=== PATIENT | female | born 1995 | race Caucasian/White ===

== ENCOUNTER 2018-02-25 09:12 | Emergency (ER) | payer MEDICAID ==
--- NOTE | 2018-02-25 09:35 | EDPHY ---
General Time Seen by Provider: 02/25/18 09:30 Narrative: CLINICAL IMPRESSION: Pelvic pain ASSESSMENT/PLAN: Patient is a 22 year old female with a significant medical history of PTSD and OCD who presents who presents with pelvic pain and cramping. Patient is afebrile and nontoxic appearing, she is in no acute distress. Her abdomen is soft, I am unable to elicit any tenderness on palpation, no peritoneal signs on initial or re-examination. Vital signs remained stable while in the ED, no signs of sepsis or serious bacterial illness. CBC with no leukocytosis or shift , basic metabolic panel grossly unremarkable. negative, rules out ectopic. Pelvic exam with moderate discharge, cervix is pink mildly friable however there is no cervical motion tenderness or adnexal fullness or tenderness. Low suspicion for PID with lack of cervical motion tenderness, GC and wet prep are pending. US with no cystic or solid adnexal masses, normal blood flow. No evidence of torsion, no ovarian cyst, TOA and no evidence of surgical abdomen. She had no urinary symptoms to suggest urinary tract infection or pyelonephritis. This patient presents with pelvic pain and cramping of unclear etiology. Patient has had issues with severe cramps and reported abnormal uterine bleeding in the past, discussed close follow-up with her OBGYN to further evaluate other etiologies including but not limited to endometriosis. I do not suspect other etiologies to include appendicitis, ischemic bowel, bowel perforation or any other life threatening disease. I have discussed with the patient the level of uncertainty with undifferentiated abdominal pain and clearly explained the need to repeat examination within 12-24 hours. The patient is well established with her primary care Dr. Wiggins and will call to schedule an appointment for follow-up in repeat examination. Return precautions discussed-patient will return for worsening or localizing pain, fever, significant vaginal bleeding or for any other concerning symptom. Patient verbalizes understanding and she is in agreement with this plan. DIFFERENTIAL DX: Abdominal pain in a female including but not limited to ovarian cyst, pelvic inflammatory disease, ovarian torsion, urinary tract infection, and appendicitis. CHIEF COMPLAINT: Pelvic pain, cramping HPI: Patient is a 22-year-old female with a significant history of PTSD and OCD who presents to the emergency department with cramping and pelvic pain. Patient reports she had a heavier than normal menses last week, her period ended and she continued to have significant lower abdominal cramping. Patient reports it continued through the weekend and then worsened this morning. She reports that it is not localized to 1 side or the other, it tends to move positions. She took some Aleve this morning at 7:30 a.m. With mild relief of her discomfort. Patient does have a history of heavy menses and severe abdominal cramping, followed closely by her PCP Dr. Wiggins. Patient planned poor pelvic ultrasound however symptoms improved until several days prior. Patient is sexually active with more than 1 partner, she is not concerned about sexually transmitted infections. No history of ovarian cyst. Patient denies any fevers, chills, nausea, vomiting, chest pain or shortness of breath. She denies any current vaginal bleeding or vaginal discharge. PMH: PTSD, OCD Pertinent Past Surgical History: Denies Family History: Denies Social History: Occasional EtOH, denies smoking REVIEW OF SYSTEMS: All other systems negative Constitutional: No fever, no chills, appetite change. Eyes: No discharge, vision change ENT: No sore throat, congestion, ear pain. Cardiovascular: No chest pain, no palpitations. Respiratory: No cough, no shortness of breath. Gastrointestinal: Lower abdominal cramping. No vomiting, diarrhea. Genitourinary: Pelvic pain. No hematuria, dysuria, flank pain. Musculoskeletal: No back pain, joint swelling, joint pain, myalgias. Skin: No rashes, color change. Neurological: No headache, dizziness, weakness. PHYSICAL EXAM: General Appearance: Patient is well-developed, well-appearing and in no acute distress HENT: Normocephalic, atraumatic. Bilateral external ears are normal. Bilateral tympanic membranes are normal with pearly saeed reflex. Nares are clear, mucosa is pink. Oropharynx is clear, uvula is midline. There is no tonsillar enlargement or exudate. The dentition is normal. Eyes: PERRLA, no acute vision change, nystagmus, swelling, discharge, pain or photosensitivity. Conjunctiva pink, no pallor or injection Neck: Supple, nontender, no lymphadenopathy, no midline pain, FROM, no meningismus. Respiratory: There are no retractions, lungs are clear to auscultation. Cardiac: Regular rate and rhythm, no murmurs or gallops. Gastrointestinal: Abdomen is soft, bowel sounds normal, no masses/hernia, no rigidity, guarding or focal peritoneal findings. I am unable to elicit any tenderness to palpation. exam chaperoned by Lucina MUÑOZ, moderate amount of discharge, cervix mildly friable, no cervical motion tenderness, no adnexal fullness, no adnexal tenderness. Neurological: Alert and oriented x 3, CN 2-12 grossly intact, normal gait no ataxia, DTR's intact, normal sensation and strength Skin: Warm, dry, no rashes, no nodules on palpation. Musculoskeletal: Extremities are symmetrical, full range of motion, no tenderness, deformity, swelling, or erythema. Psychiatric: Patient is oriented X 3, there is no agitation. MEDICAL DECISION MAKING: Patient was seen independently. Secondary supervising physician at time of evaluation was Dr. Cesar, she did not evaluate this patient however results and plan of care were discussed with her. Diagnosis: Pelvic pain. New, requires workup Summary: See Assessment and Plan for summary of ED visit Clinical lab tests: ordered / reviewed. Independent visualization of images, tracing, or specimens: Yes. Decision to obtain medical records or history from someone other than the patient: No Review / Summarize previous medical records: None available Discussed patient with another provider: Yes, Dr. Cesar Patient Progress: Stable, discharged. - Objective Vital Signs: Initial Vital Signs Temperature (C) 37 C 02/25/18 09:16 Heart Rate 73 02/25/18 09:16 Respiratory Rate 18 02/25/18 09:16 Blood Pressure 108/82 H 02/25/18 09:16 O2 Sat (%) 99 02/25/18 09:16 O2 Delivery Mode Room Air Allergies/Adverse Reactions: No Known Allergies Allergy (Unverified 02/25/18 09:15) Home Medications: Medication Instructions Recorded Seroquel 02/25/18 Zoloft 100mg (*) 02/25/18 Laboratory Results: Laboratory Results 02/25/18 09:38 02/25/18 09:38 Departure - Departure Disposition: Home, Routine, Self-Care Clinical Impression: Abdominal pain Condition: Good Instructions: Pelvic Pain in Women (ED) Additional Instructions: DISCHARGE INSTRUCTIONS FROM YOUR DOCTOR Thank you for visiting our emergency department today. Please keep in mind that discharge from the emergency department does not mean that there is nothing wrong - it simply means that we have not identified an emergency condition that requires further evaluation or treatment in the hospital. You should always plan to follow up with primary care for re-evaluation of your condition in the next 2-3 days. Your pelvic ultrasound was negative for acute process. Your laboratory studies were all within normal limits. Your test was negative. Your GC, chlamydia and Trichomonas tests are still pending. For pain control: You may take Tylenol, I recommend 500-1000 mg every 6-8 hours as needed. Take with food and a full glass of water. Stop taking if this is upsetting her stomach. Do not exceed [3000/4000] mg in a 24 hr period. You may also take ibuprofen, recommend 400 mg every 6 hr. Take with food and a full glass of water. Stop taking if this upsets her stomach. Do not exceed 2400 mg in a 24 hr period. Please call your primary care provider today to schedule an appointment for repeat examination this week. People present with illnesses and injuries in different ways, and it is always possible that we have missed something. You may always return for re-evaluation if symptoms worsen or if they are not improving or if you develop new/different symptoms. Again, thank you for choosing our emergency department. We hope that you feel better. Referrals: Jessica Wiggins MD [Primary Care Provider] - 2-3 days, call for appt.
[2018-02-25 09:48] LABS: PLATELET COUNT 258 10^3/uL (150-400)
[2018-02-25 11:27] VITALS: BP 111/56
[2018-02-26 11:00] LABS: GC AMPLIFICATION GENPROBE NEGATIVE (NEGATIVE)
== END 2018-02-25 11:26 | disposition home or self-care (01) ==
DX: R10.2 Pelvic and perineal pain (principal)